=== PATIENT | female | born 1970 | race Two or more races ===

== ENCOUNTER 2016-10-05 00:24 | Inpatient (IN) | payer SELFPAY ==
[2016-10-05] VITALS (9 sets, daily range): BP systolic 106–141; BP diastolic 68–85
[~2016-10-05] VITALS: Ht 149.9 cm; Wt 62.9 kg
[2016-10-05] MEDS ORDERED: LORazepam 0.5 MG TAB PO ONE (00:45)
[2016-10-05 01:37] LABS: Basophils # (auto) 0.2 uL; Basophils % (auto) 1.9 % (0.0-2.0); CONDITION Y; DEFINITIVE SEE PRINTOUT; Eosinophils # (auto) 0.2 uL; Eosinophils % (auto) 2.5 % (0.0-7.0); Hematocrit 20.9 % (36.0-46.0); Lymphocytes # (auto) 2.6 uL; Lymphocytes % (auto) 28.9 % (10.0-50.0); Mean Corpuscular Hemoglobin 17.2 pg (28.0-32.0); Mean Corpuscular Hgb Conc. 29.3 g/dL (32.0-36.0); Mean Corpuscular Volume 58.6 fL (80.0-100.0); Mean Platelet Volume 8.8 fL (7.4-10.4); Monocytes # (auto) 0.8 uL; Monocytes % (auto) 8.9 % (0.0-12.0); Neutrophils # (auto) 5.1 uL; Neutrophils % (auto) 57.8 % (37.0-80.0); Platelet Count (auto) 565 10^3/uL (140-450); SUSPECT SEE PRINTOUT; White Blood Cell 8.9 10^3/uL (4.4-10.8)
[2016-10-05 01:42] LABS: Red Cell Distribution Width 22.8 % (11.6-16.0)
[2016-10-05 01:43] LABS: Hemoglobin 6.1 g/dL (12.2-16.2); INR 0.89 (0.9-1.15); Partial Thromboplastin Time 23.2 sec (22.64-33.71); Prothrombin Time 9.7 sec (9.37-12.3)
[2016-10-05 01:46] LABS: Albumin 3.6 g/dL (3.4-5.0); Anion Gap 10 (5-15); Aspartate Aminotransferase 23 U/L (15-37); BUN/Creatinine Ratio 26.3; Blood Urea Nitrogen 15 mg/dL (7-18); Calcium 8.6 mg/dL (8.5-10.1); Carbon Dioxide 23 mmol/L (21-32); Chloride 107 mmol/L (98-107); GFR African American 146 mL/min; GFR Non-African American 121 mL/min; Glucose 118 mg/dL (74-106); Magnesium 2.3 mg/dL (1.6-2.6); Potassium 3.8 mmol/L (3.5-5.1); Sodium 140 mmol/L (136-145)
[2016-10-05 01:51] LABS: Alkaline Phosphatase 57 U/L (45-117); Bilirubin, Total 0.2 mg/dL (0.2-1.0); Total Protein 7.7 g/dL (6.4-8.2)
[2016-10-05 01:55] LABS: Hypersegmented Neutrophils Present
[2016-10-05 01:56] LABS: Anisocytosis Moderate; Macrocytosis Moderate; Microcytosis Marked; Platelet Estimate Increased
[2016-10-05 01:57] LABS: Ovalocytes FEW
[2016-10-05 02:22] LABS: Urine Bilirubin Negative (Negative); Urine Color Yellow (Yellow); Urine Glucose Normal (Normal); Urine Ketone Negative (Negative); Urine Mucus FEW (None Seen); Urine Nitrite Negative (Negative); Urine RBC 21 /hpf (0 - 4); Urine Squamous Epithelial Cell FEW /hpf (<5); Urine Urobilinogen Normal (Negative); Urine pH 5.5 (5.0-8.0)
[2016-10-05 02:23] LABS: Urine Blood 3+ /uL (Negative)
[2016-10-05] MEDS: SODIUM CHLORIDE 0.9% 1,000 ML IV SCH ×2 (08:44→17:16)
[2016-10-05] MEDS ORDERED: LACTULOSE 20Gm/30ML SOLN PO PRN (08:45)
[2016-10-05] MEDS ORDERED: MORPHINE SULFATE 4 MG/ML SYRG IV PRN (08:45)
[2016-10-05] MEDS ORDERED: ACETAMINOPHEN 500 MG TAB PO PRN (08:45)
[2016-10-05] MEDS ORDERED: TEMAZEPAM 15 MG CAP PO PRN (08:45)
[2016-10-05] MEDS ORDERED: LORazepam 0.5 MG TAB PO PRN (08:45)
[2016-10-05] MEDS ORDERED: MORPHINE SULF INJ 2 MG/ML SYRINGE 1ML IV PRN (08:45)
[2016-10-05] MEDS ORDERED: HYDROcodone-ACET 5/325MG TAB PO PRN (08:45)
[2016-10-05] MEDS ORDERED: PROMETHAZINE HCL 25 MG/ML 1ML IV PRN (08:45)
[2016-10-05] MEDS ORDERED: NITROGLYCERIN 0.4 MG SL TAB SL PRN (08:45)
[2016-10-05] MEDS ORDERED: ALBUTEROL SULF 2.5 MG/0.5ML(0.5%) NEB SOLN NEB PRN (08:45)
[2016-10-05] MEDS: cefTRIAXone 1GM/50ML D5W 50 ML IV SCH (10:18)
[2016-10-05] MEDS: PANTOPRAZOLE 40 MG TAB PO SCH (10:19)
[2016-10-05 19:35] LABS: Hematocrit 30.5 % (36.0-46.0); Hemoglobin 9.4 g/dL (12.2-16.2)
[2016-10-06 01:13] LABS: Hematocrit 29.8 % (36.0-46.0); Hemoglobin 9.1 g/dL (12.2-16.2)
[2016-10-06] MEDS: SODIUM CHLORIDE 0.9% 1,000 ML IV SCH ×2 (01:46→08:55)
[2016-10-06 05:00] VITALS: BP 107/72
[2016-10-06 07:27] LABS: Basophils # (auto) 0.1 uL; Basophils % (auto) 0.9 % (0.0-2.0); CONDITION Y; DEFINITIVE SEE PRINTOUT; Eosinophils # (auto) 0.3 uL; Hematocrit 29.8 % (36.0-46.0); Hemoglobin 9.4 g/dL (12.2-16.2); Lymphocytes # (auto) 1.8 uL; Lymphocytes % (auto) 28.7 % (10.0-50.0); Mean Corpuscular Hemoglobin 21.1 pg (28.0-32.0); Mean Corpuscular Hgb Conc. 31.5 g/dL (32.0-36.0); Mean Corpuscular Volume 67.2 fL (80.0-100.0); Mean Platelet Volume 9.1 fL (7.4-10.4); Monocytes # (auto) 0.7 uL; Monocytes % (auto) 11.4 % (0.0-12.0); Neutrophils # (auto) 3.5 uL; Platelet Count (auto) 461 10^3/uL (140-450); SUSPECT SEE PRINTOUT; White Blood Cell 6.4 10^3/uL (4.4-10.8)
[2016-10-06 07:40] LABS: Red Cell Distribution Width 31.8 % (11.6-16.0)
[2016-10-06 08:54] LABS: Anisocytosis Moderate; Platelet Estimate Increased
[2016-10-06 08:55] LABS: Hypochromia Moderate; Microcytosis Moderate; Ovalocytes FEW; Tear Drop Cells FEW
[2016-10-06 09:00] VITALS: BP 118/70
[2016-10-06] MEDS: cefTRIAXone 1GM/50ML D5W 50 ML IV SCH (09:41)
[2016-10-06] MEDS: PANTOPRAZOLE 40 MG TAB PO SCH (09:41)
[2016-10-06 11:04] VITALS: BP 118/70
[2016-10-06 12:14] VITALS: BP 113/68
== END 2016-10-06 13:45 | disposition home or self-care (01) | DRG 760 ==
LOC: EDBD 00:27 → ER 00:27 → TELE 00:28 → TELE-E-ADS 14:33 → EAST 17:23 → TELE-EAST 17:27
PROVIDERS: ADMIT Internal Medicine; ATTEND Internal Medicine
PROC: 30233N1 Transfusion of Nonautologous Red Blood Cells into Peripheral Vein, Percutaneous Approach (ICD-10-PCS; principal; 2016-10-05)
DX: N92.0 Excessive and frequent menstruation with regular cycle (principal); N39.0 Urinary tract infection, site not specified; D50.0 Iron deficiency anemia secondary to blood loss (chronic); N83.10 Corpus luteum cyst of ovary, unspecified side; R00.0 Tachycardia, unspecified; D25.9 Leiomyoma of uterus, unspecified; D47.3 Essential (hemorrhagic) thrombocythemia; Z82.49 Family history of ischemic heart disease and other diseases of the circulatory system
CPT/HCPCS: 36415; 36430; 71020; 76856; 80053; 81001; 82270; 83735; 84484; 85014; 85018; 85025; 85045; 85610; 85730; 86850; 86900; 86901; 86920; 87086; 93005; 96374; J0696

== ENCOUNTER 2019-06-01 17:15 | Emergency (ER) | payer MEDICAID ==
[~2019-06-01] VITALS: Ht 149.9 cm; Wt 86.2 kg
[2019-06-01] MEDS ORDERED: SODIUM CHLORIDE 0.9% 1,000 ML IV ONE ×2 (17:23)
[2019-06-01] MEDS ORDERED: MORPHINE SULFATE 4 MG/ML SYR/VIAL IV ONE (17:30)
[2019-06-01] MEDS ORDERED: ONDANSETRON HCL 4 MG/2 ML VIAL IV ONE (17:30)
[2019-06-01] MEDS ORDERED: KETOROLAC TROMETH 30 MG/ML 1ML VIAL ONE (17:56)
[2019-06-01] MEDS ORDERED: KETOROLAC TROMETH 15 mg/ml 1ML VL IV ONE (18:00)
[2019-06-01 18:01] LABS: Eosinophils # (auto) 0 10 ^3/uL (0-0.8); Lymphocytes # (auto) 1.3 10 ^3/uL (0.4-5.4); Monocytes # (auto) 0.5 10 ^3/uL (0-1.3)
[2019-06-01 18:03] LABS: Basophils # (auto) 0 10 ^3/uL (0-0.2); Basophils % (auto) 0.3 % (0.0-2.0); Eosinophils % (auto) 0.4 % (0.0-7.0); Hematocrit 37.4 % (36.0-46.0); Hemoglobin 11.9 g/dL (12.2-16.2); Mean Corpuscular Hemoglobin 23.7 pg (28.0-32.0); Mean Corpuscular Hgb Conc. 31.9 g/dL (32.0-36.0); Mean Corpuscular Volume 74.4 fL (80.0-100.0); Monocytes % (auto) 4.1 % (0.0-12.0); Neutrophils # (auto) 9.9 10 ^3/uL (1.6-8.6); Neutrophils % (auto) 84.2 % (37.0-80.0); Platelet Count (auto) 363 10^3/uL (140-450); Red Blood Cells 5.03 10^6/uL (4.0-5.20); Red Cell Distribution Width 20.8 % (11.8-14.3); White Blood Cell 11.8 10^3/uL (4.4-10.8)
[2019-06-01 18:16] LABS: Albumin 3.7 g/dL (3.4-5.0); Anion Gap 9 (5-15); Blood Urea Nitrogen 10 mg/dL (7-18); Calcium 8.8 mg/dL (8.5-10.1); Carbon Dioxide 22 mmol/L (21-32); Chloride 103 mmol/L (98-107); Glucose 104 mg/dL (74-106); Sodium 134 mmol/L (136-145)
[2019-06-01 18:18] LABS: INR 1.03 (0.9-1.15); Partial Thromboplastin Time 31.5 sec (23.64-32.05)
[2019-06-01 18:21] LABS: Alanine Aminotransferase 47 U/L (13-56); Alkaline Phosphatase 66 U/L (45-117); Aspartate Aminotransferase 42 U/L (15-37); BUN/Creatinine Ratio 16.7; Bilirubin, Total 0.4 mg/dL (0.2-1.0); GFR African American 137 mL/min; GFR Non-African American 113 mL/min; Total Protein 8.3 g/dL (6.4-8.2)
[2019-06-01 19:00] VITALS: BP 115/66
== END 2019-06-01 19:33 | disposition home or self-care (01) ==
LOC: EDBD 17:15 → ER 17:18
DX: D27.0 Benign neoplasm of right ovary (principal); R19.7 Diarrhea, unspecified
CPT/HCPCS: 36415; 71045; 74176; 80053; 84484; 85025; 85610; 85730; 96361; 96374; 96375; 99285; J1885; J2270; J2405